=== PATIENT | male | born 1960 | race Caucasian/White ===

== ENCOUNTER 2016-09-02 17:50 | Emergency (ER) | payer OTHER ==
[~2016-09-02] VITALS: Ht 182.9 cm; Wt 104.3 kg
[~2016-09-02 17:50] MED LIST: ATORVASTATIN CA80 M1 PO; CLOPIDOGREL75 M1 PO; MELOXICAM7.5 M1 PO; METOPROLOL TART50 M1 PO
[2016-09-02 18:08] VITALS: BP 140/89
== END 2016-09-02 18:20 | disposition admitted as inpatient to this hospital (09) ==
LOC: ERH 17:50
DX: R10.32 Left lower quadrant pain (principal)